=== PATIENT | female | born 1935 | race Caucasian/White ===

== ENCOUNTER 2017-10-12 09:30 | Emergency (ER) | payer MEDICARE, BC ==
[2017-10-12 09:56] VITALS: BP 151/85
[2017-10-12] MEDS ORDERED: Phenazopyridine 100 MG Tab PO PRN (10:33)
--- NOTE | 2017-10-12 11:23 | EDM.PDOC ---
ED HPI GENERAL MEDICAL PROBLEM - General Chief Complaint: Genitourinary Problem Stated Complaint: UTI?? Time Seen by Provider: 10/12/17 09:50 Source of Information: Reports: Patient, RN History Limitations: Reports: No Limitations - History of Present Illness INITIAL COMMENTS - FREE TEXT/NARRATIVE: Been experiencing urinary complaints for 2 wks. Last night having frequency, dysuria and hematuria. Visiting daughter in [place]. From [place]. No other c/o voiced. Denies fever, chills. H/o of prior UTI. Onset: Gradual Duration: Week(s):, Getting Worse Location: Reports: Pelvis Quality: Reports: Burning Severity: Moderate Improves with: Reports: None Worsens with: Reports: None Associated Symptoms: Denies: Fever/Chills, Nausea/Vomiting, Weakness - Related Data Allergies Allergy/AdvReac Type Severity Reaction Status Date / Time meperidine HCl [From Demerol] Allergy Nausea Verified 10/12/17 09:56 Penicillins Allergy Hives Verified 10/12/17 09:56 Home Meds: Home Meds Ca Carbonate/Vitamin D3/Vit K [Calcium + D Soft Chewable Tab] 2 tab PO DAILY [History] Mirtazapine [Remeron] 15 mg PO BEDTIME 08/16/14 [History] Multivitamins [Tab-A-Brandt] 1 tab PO DAILY 08/16/14 [History] Temazepam [Restoril] 15 mg PO BEDTIME 05/16/16 [History] traZODone 25 mg PO BEDTIME 05/16/16 [History] Fish Oil/DHA/EPA [Fish Oil 1,200 MG] 1 each PO BID 10/09/16 [History] Pantoprazole [ProTONIX] 40 mg PO DAILY@0700 #30 tab.cr 10/22/16 [Rx] Acetaminophen [Tylenol Arthritis Pain] 650 mg PO Q8HR PRN 11/29/16 [History] Bumetanide 1 mg PO BID 11/29/16 [History] Lisinopril [Prinivil] 5 mg PO DAILY 11/29/16 [History] Warfarin [Coumadin] 2.5 mg PO Q48H 11/29/16 [History] Warfarin [Coumadin] 5 mg PO Q48H 11/29/16 [History] Bumetanide [Bumex] 1 mg PO ASDIRECTED PRN 10/12/17 [History] Diclofenac Sodium [Voltaren] 1 applic TOP BID 10/12/17 [History] Digoxin [Digox] 125 mcg PO DAILY 10/12/17 [History] Docusate Sodium [Colace] 100 mg PO DAILY 10/12/17 [History] Ibuprofen 200 mg PO TID PRN 10/12/17 [History] Loperamide HCl [Imodium A-D] 2 mg PO ASDIRECTED PRN 10/12/17 [History] Metoprolol Succinate 100 mg PO DAILY 10/12/17 [History] Nitroglycerin [Nitrostat] 0.4 mg SL ASDIRECTED PRN 10/12/17 [History] Potassium Phosphate,Monobasic [K-Phos Original] 500 mg PO DAILY 10/12/17 [ History] Promethazine [Phenergan] 25 mg PO Q4H PRN 10/12/17 [History] Spironolactone [Aldactone] 12.5 mg PO DAILY 10/12/17 [History] fentaNYL [Duragesic] 12 mcg TOP Q72H 10/12/17 [History] Past Medical History HEENT History: Reports: Hard of Hearing Cardiovascular History: Reports: Afib Other Cardiovascular History: 'stress heartattack" Genitourinary History: Reports: UTI, Recurrent Musculoskeletal History: Reports: Arthritis, Back Pain, Chronic Hematologic History: Reports: Blood Transfusion(s) - Past Surgical History Cardiovascular Surgical History: Reports: Other (See Below) GI Surgical History: Reports: Appendectomy, Cholecystectomy, Colonoscopy Neurological Surgical History: Reports: Spinal Fusion Musculoskeletal Surgical History: Reports: Hip Replacement, Knee Replacement, Shoulder Replacement, Other (See Below) Social & Family History - Family History Family Medical History: Noncontributory - Caffeine Use Caffeine Use: Reports: Coffee ED ROS GENERAL - Review of Systems Review Of Systems: See Below Constitutional: Denies: Fever, Chills Respiratory: Denies: Shortness of Breath Cardiovascular: Denies: Lightheadedness GI/Abdominal: Denies: Abdominal Pain : Reports: Dysuria, Frequency, Hematuria, Urgency. Denies: Flank Pain, Incontinence Skin: Reports: No Symptoms Neurological: Reports: No Symptoms Psychiatric: Reports: No Symptoms Hematologic/Lymphatic: Reports: No Symptoms ED EXAM, RENAL/ - Physical Exam Exam: See Below Exam Limited By: No Limitations General Appearance: Alert, WD/WN, No Apparent Distress Throat/Mouth: Normal Voice, No Airway Compromise Head: Atraumatic Neck: Normal Inspection Respiratory/Chest: Lungs Clear Cardiovascular: Regular Rate, Rhythm GI/Abdominal: Soft, Non-Tender Back Exam: No: CVA Tenderness (L), CVA Tenderness (R) Extremities: Normal Inspection Neurological: Alert, Oriented Psychiatric: Normal Affect, Normal Mood Skin Exam: Warm, Dry, Intact, Normal Color Course - Vital Signs Last Recorded V/S: Last Vital Signs Temp 97.8 F 10/12/17 09:47 Pulse 65 10/12/17 09:47 Resp 16 10/12/17 09:47 BP 151/85 H 10/12/17 09:47 Pulse Ox 96 10/12/17 09:47 - Orders/Labs/Meds Orders: Active Orders 24 hr Category Date Time Status URINALYSIS W/MICROSCOPIC [UA W/MICROSCOPIC] [URIN] Stat Lab 10/12/17 09:44 Ordered Phenazopyridine [Pyridium] Med 10/12/17 10:33 Active 200 mg PO TID PRN Medication Orders Phenazopyridine HCl (Pyridium) 200 mg PO TID PRN PRN Reason: Dysuria Labs: Laboratory Tests 10/12/17 Range/Units 09:44 Specimen Type Urinvoid Urine Color Yellow (YELLOW) Urine Appearance Cloudy H (CLEAR) Urine pH 6.0 (5.0-9.0) Ur Specific Ragland 1.015 (1.005-1.030) Urine Protein >=300 H (NEGATIVE) mg/dL Urine Glucose (UA) Negative (NEGATIVE) mg/dL Urine Ketones Negative (NEGATIVE) mg/dL Urine Occult Blood Large H (NEGATIVE) Urine Nitrite Negative (NEGATIVE) Urine Bilirubin Negative (NEGATIVE) Urine Urobilinogen 0.2 (0.2-1.0) E.U./dL Ur Leukocyte Esterase Large H (NEGATIVE) Urine RBC Semi-packed /HPF Urine WBC Packed /HPF Urine Bacteria Moderate H (NONE TO FEW) /HPF Meds: Medications Generic Name Dose Route Start Last Admin Trade Name Freq PRN Reason Stop Dose Admin Phenazopyridine HCl 200 mg 10/12/17 10:33 Pyridium PO TID PRN Dysuria Departure - Departure Time of Disposition: 11:27 Disposition: Home, Self-Care 01 Condition: Good Clinical Impression: UTI, Urinary tract infectious disease - Discharge Information Instructions: Urinary Tract Infection, Adult Referrals: PCP,Not In Area [Primary Care Provider] - Forms: ED Department Discharge - My Orders Last 24 Hours: My Active Orders 10/12/17 09:44 URINALYSIS W/MICROSCOPIC [UA W/MICROSCOPIC] [URIN] Stat 10/12/17 10:33 Phenazopyridine [Pyridium] 200 mg PO TID PRN - Assessment/Plan Last 24 Hours: My Active Orders 10/12/17 09:44 URINALYSIS W/MICROSCOPIC [UA W/MICROSCOPIC] [URIN] Stat 10/12/17 10:33 Phenazopyridine [Pyridium] 200 mg PO TID PRN Assessment:: UTI Plan: 1. pyridium 200mg tid for 2 days for painful urination. This will make your urine orange. 2. Bactrim DS BID for 5 days for UTI. 3. F/u with primary care after completion of antibiotics. 4. Encourage drinking cranberry juice and plenty of water.
== END 2017-10-12 11:30 | disposition home or self-care (01) ==
LOC: KA.ED 09:30
DX: N39.0 Urinary tract infection, site not specified (principal); I48.91 Unspecified atrial fibrillation; Z88.0 Allergy status to penicillin; Z88.8 Allergy status to other drugs, medicaments and biological substances; Z79.899 Other long term (current) drug therapy; Z90.49 Acquired absence of other specified parts of digestive tract; Z79.01 Long term (current) use of anticoagulants; Z87.440 Personal history of urinary (tract) infections
CPT/HCPCS: 81001; 99283